=== PATIENT | male | born 1950 | race Caucasian/White ===

== ENCOUNTER → 2016-11-20 | Outpatient (CLI) | payer OTHER ==
[~2016-11-20] MED LIST: ALLOPURINOL300 MG PO; ASPIRINEC PO; ATENOLOL PO; CADUET 5 MG/101 TAB PO; CLONIDINE HCL0.1 MG PO; COUMADIN5 MG PO; HCTZ PO; KCL PO; LASIX PO; LISINOPRIL2.5 MG PO; LOW DOSE ASPIRI81 M1 PO; METFORMIN HCL500 M1 PO; NORVASC PO; TENORMIN50 MG PO; TOPROL XL PO; ZOCOR PO; [UNRECOGNIZED DRUG - OTHER] PO
[2016-11-20 15:39] LABS: BUN/CREATININE RATIO 21.17; CALCIUM SERUM 8.9 mg/dL (8.4-10.2); CREATININE SERUM 1.7 mg/dL (0.6-1.4); GLOM FILT RATE Estimated 41.7 mL/min (>60); POTASSIUM 4.2 mmol/L (3.5-5.1)
== END | disposition home or self-care (01) ==
LOC: CLAB 14:05
PROVIDERS: Internal Medicine Cardiovascular Disease
DX: I42.9 Cardiomyopathy, unspecified (principal)
CPT/HCPCS: 36415; 80048

== ENCOUNTER → 2017-01-30 | Outpatient (CLI) | payer OTHER ==
[2017-01-30 15:06] LABS: BUN/CREATININE RATIO 15.88; CALCIUM SERUM 8.9 mg/dL (8.4-10.2); CREATININE SERUM 1.7 mg/dL (0.6-1.4); GLOM FILT RATE Estimated 41.7 mL/min (>60); POTASSIUM 4.2 mmol/L (3.5-5.1)
== END | disposition home or self-care (01) ==
LOC: CLAB 14:20
PROVIDERS: Internal Medicine Cardiovascular Disease
DX: I25.10 Atherosclerotic heart disease of native coronary artery without angina pectoris (principal)
CPT/HCPCS: 36415; 80048